=== PATIENT | female | born 1960 | race Caucasian/White ===

== ENCOUNTER 2016-11-23 09:04 | Day surgery (SDC) | payer OTHER ==
[~2016-11-23 09:04] MED LIST: Sodium Chloride 0.9% 1,000 ML IV SCH; Sodium Chloride 0.9% 10 ML Syringe FLUSH PRN
[2016-11-23] MEDS ORDERED: Propofol 200 MG/20 ML SDV ONE (10:50)
[2016-11-23 11:18] VITALS: BP 109/58
--- NOTE | 2016-11-23 12:46 | OR ---
DATE OF OPERATION: 11/23/2016 PREOPERATIVE DIAGNOSIS: Generalized abdominal pain. POSTOPERATIVE DIAGNOSIS: Normal upper endoscopy. OPERATION: Esophagogastroduodenoscopy with biopsy. COMPLICATIONS: None. DRAINS: None. SPECIMENS: Gastric antrum for H pylori and pathology. ESTIMATED BLOOD LOSS: Minimal. ANESTHESIA: General propofol anesthesia. INDICATION: Ms. Stout is a 56-year-old female who has been seeing me for abdominal pain as well as for an abnormal imaging finding. The above-mentioned procedure was explained. The risks, benefits, and complications were explained. The patient understood and agreed and is brought to the operating room. DESCRIPTION OF PROCEDURE: The patient was brought to the operating room and placed in left lateral decubitus position. The bed was then placed at a 45-degree angle and a mouth guard was placed. General propofol anesthesia was administered. We began by placing the endoscope into the oral cavity, and with a visual inspection, we then carefully advanced the endoscope to the second portion of the duodenum. The duodenum was then evaluated on withdrawal, which revealed no significant finding. The bulb was normal. The gastric antrum and pylorus were normal. I did take a biopsy from the gastric antrum randomly for H pylori and pathology. Next, retroflexion was performed in the stomach, which revealed no hiatal hernia and no other significant abnormalities. The stomach was decompressed and the GE junction was then evaluated on withdrawal, which appeared normal. The Z-line was normal. The remainder of the esophagus was normal on withdrawal. The endoscope was then removed. The patient was awoken in the OR and taken to the PACU for recovery. There were no complications. Instrument count was correct. The patient tolerated the procedure well. ALEXYS /[id number]
== END 2016-11-23 11:40 | disposition home or self-care (01) ==
LOC: LB.SDS 09:04
PROVIDERS: ATTEND Surgery
DX: K29.50 Unspecified chronic gastritis without bleeding (principal); Z88.1 Allergy status to other antibiotic agents; Z88.8 Allergy status to other drugs, medicaments and biological substances
CPT/HCPCS: 43239; 88305; J2704; J7040; J7050